=== PATIENT | female | born 1990 | race African-American/Black ===

== ENCOUNTER 2021-09-21 11:23 | Emergency (ER) | payer BC, SELFPAY ==
[2021-09-21 11:30] VITALS: BP 125/75; PULSE 74; RESP 16; TEMP 36.3; O2SAT 100
--- NOTE | 2021-09-21 12:18 | ED.BACK ---
HPI - Back Pain/Injury General Chief Complaint: Back Pain/Injury Stated Complaint: back and shoulder pain Time Seen by Provider: 09/21/21 11:51 Source: patient History of Present Illness HPI Narrative: Patient presents with back pain. She reports a prior injury at work when lifting a treadmill back in February she saw her primary care doctor and physical therapy and symptoms had improved and she was returning to work however the past couple days she has noted right shoulder pain and right mid back pain similar to her prior injury. Pain is achy, constant, worse with using her back and right upper extremity. She denies any bowel or bladder incontinence she denies any recent spinal patient she denies any major changes rate fevers or IV drug use. Related Data Allergies Allergy/AdvReac Type Severity Reaction Status Date / Time No Known Allergies Allergy Verified 09/21/21 12:21 Review of Systems Review of Systems: CONSTITUTIONAL: Denies fever, chills, or sweats. EYES: Denies visual changes, redness, or discharge. ENT: Denies rhinorrhea, congestion, sore throat, or otalgia. CARDIOVASCULAR: Denies chest pain, palpitations, or edema. RESPIRATORY: Denies cough or dyspnea. GASTROINTESTINAL: Denies abdominal pain, nausea, vomiting, or diarrhea. GENITOURINARY: Denies dysuria or hematuria. SKIN: Denies rash or itching. MUSCULOSKELETAL: Reports mid back pain and right shoulder pain NEUROLOGIC: Denies headache, numbness, dizziness, or weakness. PSYCHIATRIC: Denies anxiety or depression. All systems reviewed & are unremarkable except as noted in HPI and below PMFSH Past Medical History Medical History (Updated 09/21/21 @ 12:24 by Marciano Pardo MD) Back pain Social History Social History (Updated 09/21/21 @ 12:19 by Marciano Pardo MD) Substance use: never Exam Narrative: GENERAL: Well-appearing, well-nourished, and in no acute distress. HEAD: Normocephalic, atraumatic. EYES: PERRLA and EOMI. ENT: Nares clear, no rhinorrhea or epistaxis. Mucous membranes moist. NECK: Supple. No masses. Tenderness to palpation along the superior aspect of the right trapezius BACK: Tenderness palpation on the thoracic right paraspinal area there is no focal bony tenderness no step-offs no midline back pain EXTREMITIES: Mild tenderness with palpation of the superior aspect of the right trapezius no focal bony tenderness no limitations to range of motion no deformities. SKIN: Warm, dry, no rash. NEURO: No focal deficits. Patient ambulates without difficulty patient has 5 out of 5 strength in the bilateral lower extremities alert and oriented x3. PSYCH: Normal mood and affect. Course Vital Signs Vital signs: Vital Signs Temperature 36.3 C L 09/21/21 11:30 Pulse Rate 74 09/21/21 11:30 Respiratory Rate 16 09/21/21 11:30 Blood Pressure 125/75 09/21/21 11:30 Pulse Oximetry 100 09/21/21 11:30 Temperature 36.3 C L 09/21/21 11:30 Pulse Rate 74 09/21/21 11:30 Respiratory Rate 16 09/21/21 11:30 Blood Pressure 125/75 09/21/21 11:30 Pulse Oximetry 100 09/21/21 11:30 MDM - Back Pain/Injury MDM Narrative Medical decision making narrative: H&P as above, vss, pt looks clinically well, exam with tenderness along the trapezius no focal neurological compromise, labs/img considered, symptomatic relief available as needed, patient was treated with Toradol, on reevaluation pt continues to looks clinically well improvement in symptoms. Suspect muscle strain, dns fracture, cord compromise, dislocation, neurovascular compromise, and. plan to tx/monitor as op w/ pcm f/u findings/plan discussed with pt, pt agree/comfortable with plan, return precautions given Discharge Plan Discharge Clinical Impression: Back pain Qualifiers: Back pain location: thoracic back pain Chronicity: acute Back pain laterality: right Qualified Code(s): M54.6 - Pain in thoracic spine Trapezius muscle strain Qualifiers: Encounter type: initial encount
[2021-09-21] MEDS: KETOROLAC 30 MG/ML VIAL (*BKC) IM (12:45)
== END 2021-09-21 13:01 | disposition home or self-care (01) ==
PROVIDERS: Emergency Provider Emergency Medicine
DX: M54.9 Dorsalgia, unspecified (principal); S46.811A Strain of other muscles, fascia and tendons at shoulder and upper arm level, right arm, initial encounter; Y33.XXXA Other specified events, undetermined intent, initial encounter
CPT/HCPCS: 96372; 99283; J1885

== ENCOUNTER 2023-01-09 21:31 | Emergency (ER) | payer BC, SELFPAY ==
[2023-01-09 21:34] VITALS: BP 137/91; PULSE 85; RESP 16; TEMP 36.5; O2SAT 98
--- NOTE | 2023-01-09 23:15 | PC.NURSE ---
2310 - Pt decided to leave and come back another time.
== END 2023-01-09 23:10 | disposition left against medical advice (07) ==
DX: Z53.21 Procedure and treatment not carried out due to patient leaving prior to being seen by health care provider (principal)
CPT/HCPCS: 99199

== ENCOUNTER 2023-01-10 08:42 | Emergency (ER) | payer BC, SELFPAY ==
[2023-01-10 09:03] VITALS: BP 93/56; PULSE 66; RESP 18; TEMP 36.6; O2SAT 97
[2023-01-10] MEDS: KETOROLAC 30 MG/ML VIAL (*BKC) IM (09:46)
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
== END 2023-01-10 09:55 | disposition home or self-care (01) ==
PROVIDERS: Emergency Provider Physician Assistant; PCP Family Medicine
DX: M54.2 Cervicalgia (principal); G89.29 Other chronic pain
CPT/HCPCS: 96372; 99283; J1885

== ENCOUNTER 2023-02-04 16:57 | Emergency (ER) | payer BC, SELFPAY ==
--- NOTE | ~2023-02-04 | XR_ITS ---
EXAMINATION: XR wrist LT min 3V DATE: 02/04/2023 18:18 INDICATION: Left wrist pain TECHNIQUE: Posteroanterior, ulnar deviation, oblique, and lateral views of the left wrist were obtain ed. COMPARISON: None available FINDINGS: No fracture, dislocation, or subluxation. The bones and joint spaces are unremarkable. Ther e is mild dorsal soft tissue swelling overlying the distal forearm. IMPRESSION: 1. No acute osseous abnormality. Reviewed, dictated and finalized at location F.
[2023-02-04 17:32] VITALS: BP 117/84; PULSE 77; RESP 18; TEMP 37; O2SAT 99
--- NOTE | 2023-02-04 17:43 | PC.NURSE ---
pt states she was evaluated at [facility] yesterday where x-rays and CT scans were performed. pt sent home with prescriptions for Flexeril and ibuprofen. pt states she didn't take the ibuprofen because its not going to do anything for her. pt here today for pain in her left wrist and shoulder along with upper back and neck. pt in no acute distress or SOB, airway patent, breathing even/unlabored. pt A&Ox4, denies any chest pain or ELIJAH, gait steady. pt denies any LOC c/o headache. denies any visual changes.
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
[2023-02-04] MEDS: KETOROLAC 30 MG/ML VIAL (*BKC) IM (18:46)
== END 2023-02-04 19:00 | disposition home or self-care (01) ==
LOC: ANHED 19:15
PROVIDERS: Emergency Provider Emergency Medicine; PCP Family Medicine
DX: S66.912A Strain of unspecified muscle, fascia and tendon at wrist and hand level, left hand, initial encounter (principal); V49.40XA Driver injured in collision with unspecified motor vehicles in traffic accident, initial encounter
CPT/HCPCS: 73110; 96372; 99283; J1885